=== PATIENT | female | born 1980 | race Caucasian/White ===

== ENCOUNTER → 2016-11-24 | Outpatient (CLI) | payer MEDICAID ==
[~2016-11-24] MED LIST: ALBU18HF INH; DIPH25CA61 PO; IBUP-1 PO; MULT-516 PO; dexamethasone LEFTEYE
== END ==
LOC: STAR 09:34
PROVIDERS: ATTEND Podiatrist
DX: Z02.9 Encounter for administrative examinations, unspecified (principal)

== ENCOUNTER 2018-09-29 20:26 | Emergency (ER) | payer MEDICAID ==
[~2018-09-29] VITALS: Ht 172.7 cm; Wt 75.9 kg
[~2018-09-29 20:26] MED LIST changes: -IBUP-1 PO; +IBUP-11 PO
[2018-09-29] MEDS ORDERED: MAALOX/HYOSCYAMINE/LIDOCAINE 45 ML BTL PO ONE (21:00)
[2018-09-29] MEDS ORDERED: FAMOTIDINE 20 MG/2 ML IVP ONE (21:00)
[2018-09-29] MEDS ORDERED: ONDANSETRON 2MG/ML, 2ML IVPush ONE (21:00)
[2018-09-29] MEDS ORDERED: SODIUM CHLORIDE 0.9% 1,000ML IVBOLUS ONE (21:00)
[2018-09-29] MEDS ORDERED: ACETAMINOPHEN 500 MG TABLET PO ONE (21:00)
--- NOTE | 2018-09-29 21:00 | NUR ---
assumed care of pt. pt here for N/V/D today. pt denies urinary c/o. denies any sick contacts. denies . urine sample collected and sent
[2018-09-29] MEDS ORDERED: ONDANSETRON 2MG/ML, 2ML ONE (21:11)
[2018-09-29] MEDS ORDERED: FAMOTIDINE 20 MG/2 ML ONE (21:11)
[2018-09-29 21:16] LABS: BASOPHILS # (AUTO) 0.02 x10^3/uL (0-0.1); BASOPHILS % (AUTO) 0 % (0-1); EOSINOPHILS # (AUTO) 0.04 x10^3/uL (0-0.4); EOSINOPHILS % (AUTO) 0 % (1-7); LYMPHOCYTES # (AUTO) 1.15 x10^3/uL (1-3.4); LYMPHOCYTES % (AUTO) 10 % (22-44); MD NO; MEAN CORPUSCULAR HEMOGLOBIN 29.8 pg (27.0-34.8); MEAN CORPUSCULAR HGB CONC 33.8 g/dL (32.4-35.8); MEAN CORPUSCULAR VOLUME 88.1 fL (80-100); MEAN PLATELET VOLUME 7.1 fL (7.4-10.4); MONOCYTES # (AUTO) 0.48 x10^3/uL (0.2-0.8); MONOCYTES % (AUTO) 4 % (2-9); NEUTROPHILS % (AUTO) 85 % (42-75); PLATELET COUNT 342 x10^3/uL (130-400); RED BLOOD COUNT 4.74 x10^6/uL (3.82-5.3); RED CELL DISTRIBUTION WIDTH 13.8 % (9.6-15.2)
[2018-09-29 21:19] LABS: ALANINE AMINOTRANSFERASE 143 U/L (12-78); ALBUMIN 4.1 g/dL (3.4-5.0); ANION GAP 8 mmol/L (5-15); CALCIUM 8.7 mg/dL (8.5-10.1); CHLORIDE 106 mmol/L (98-107)
[2018-09-29 21:21] LABS: HCG UR SG 1.037 (1.003-1.030)
[2018-09-29 21:22] VITALS: BP 113/69
[2018-09-29 21:22] LABS: ALKALINE PHOSPHATASE 90 U/L (45-117); BILIRUBIN,TOTAL 0.6 mg/dL (0.2-1.0); CREATININE 0.75 mg/dL (0.55-1.02); TOTAL PROTEIN 8.5 g/dL (6.4-8.2)
--- NOTE | 2018-09-29 21:30 | NUR ---
pt has been medicated per order. no vomiting noted. resting in position of comfort with lights dimmed
[2018-09-29 21:37] LABS: CULTURE INDICATED? YES; MICROSCOPIC INDICATED
--- NOTE | 2018-09-29 21:46 | NUR ---
REPORT FROM KAREN SANCHEZ
--- NOTE | 2018-09-29 21:47 | NUR ---
report to Lizabeth JONES
[2018-09-29] MEDS ORDERED: MAALOX/HYOSCYAMINE/LIDOCAINE 45 ML BTL ONE (21:48)
[2018-09-29] MEDS ORDERED: ACETAMINOPHEN 500 MG TABLET ONE (21:48)
--- NOTE | 2018-09-29 21:53 | NUR ---
PT SITTING UP IN GURNEY, SOME INCREASED WOB NOTED. PT REPORTS HX OF ASTHMA, "I NEED TO USE MY INHALER". SPO2 >90% ON RA, CALM, PWD. PT MEDICATED PER EMAR. FAMILY PRESENT. BP/SPO2 MONITOR IN PLACE.
[2018-09-29] MEDS ORDERED: CEFDINIR 300 MG CAPSULE ONE (22:18)
[2018-09-29] MEDS ORDERED: CEFDINIR 300 MG CAPSULE PO ONE (22:30)
--- NOTE | 2018-09-29 22:46 | NUR ---
NO S/S OF ABX RXN NOTED. PT OFF MONITORING. IV DC'D. PT UP TO DRESS SELF. AWAITING DC INSTRUCTIONS
== END 2018-09-29 22:59 | disposition home or self-care (01) ==
LOC: ED 21:31
DX: N30.01 Acute cystitis with hematuria (principal); N10 Acute pyelonephritis; R19.7 Diarrhea, unspecified; R11.2 Nausea with vomiting, unspecified; J45.909 Unspecified asthma, uncomplicated
CPT/HCPCS: 36415; 80053; 81001; 81025; 83690; 85025; 87086; 96374; 96375; 99283; J2405; J3490; J7030

== ENCOUNTER 2018-11-10 18:58 | Emergency (ER) | payer MEDICAID ==
[~2018-11-10] VITALS: Ht 152.4 cm; Wt 77.6 kg
[2018-11-10 19:03] VITALS: BP 152/85
[2018-11-10] MEDS ORDERED: ALBUTEROL/IPRATROPIUM 2.5MG/0.5MG, 3 ML NPPB ONE (19:30)
[2018-11-10 19:41] LABS: BASOPHILS # (AUTO) 0.03 x10^3/uL (0-0.1); BASOPHILS % (AUTO) 0 % (0-1); EOSINOPHILS # (AUTO) 0.24 x10^3/uL (0-0.4); EOSINOPHILS % (AUTO) 3 % (1-7); LYMPHOCYTES # (AUTO) 1.87 x10^3/uL (1-3.4); LYMPHOCYTES % (AUTO) 26 % (22-44); MD NO; MEAN CORPUSCULAR HEMOGLOBIN 29.6 pg (27.0-34.8); MEAN CORPUSCULAR HGB CONC 33.1 g/dL (32.4-35.8); MEAN CORPUSCULAR VOLUME 89.4 fL (80-100); MEAN PLATELET VOLUME 7.1 fL (7.4-10.4); MONOCYTES # (AUTO) 0.56 x10^3/uL (0.2-0.8); MONOCYTES % (AUTO) 8 % (2-9); NEUTROPHILS % (AUTO) 63 % (42-75); PLATELET COUNT 326 x10^3/uL (130-400); RED BLOOD COUNT 4.23 x10^6/uL (3.82-5.3); RED CELL DISTRIBUTION WIDTH 14.3 % (9.6-15.2)
[2018-11-10 19:43] LABS: ALBUMIN 3.8 g/dL (3.4-5.0); ANION GAP 6 mmol/L (5-15); CALCIUM 8.5 mg/dL (8.5-10.1); CHLORIDE 109 mmol/L (98-107)
[2018-11-10 19:44] LABS: CREATININE 0.65 mg/dL (0.55-1.02)
[2018-11-10] MEDS ORDERED: ALBUTEROL/IPRATROPIUM 2.5MG/0.5MG, 3 ML ONE (19:53)
[2018-11-10] MEDS ORDERED: PROMETHAZINE/COD. 10MG/6.25MG/5 ML ORAL SOL PO ONE (20:00)
--- NOTE | 2018-11-10 20:23 | NUR ---
PT FRANKLIN REFUSED AT THIS TIME, PT DRIVING.
--- NOTE | 2018-11-10 20:23 | NUR ---
SPO2 REMAINS LOW, WILL AMBULATE TO REASSESS. 91% ON ROOM AIR.
--- NOTE | 2018-11-10 20:37 | NUR ---
PT WITH CONTINUED LOW SPO2, 90-93% WHILE AMBULATING, PA MADE AWARE.
== END 2018-11-10 21:26 | disposition home or self-care (01) ==
LOC: ED 19:47
DX: J45.21 Mild intermittent asthma with (acute) exacerbation (principal); B34.9 Viral infection, unspecified
CPT/HCPCS: 36415; 71046; 80048; 82040; 85025; 94640; 99284; J7512; J7620

== ENCOUNTER 2019-08-01 17:01 | Inpatient (IN) | payer MEDICAID ==
[~2019-08-01] VITALS: Ht 152.4 cm; Wt 78.7 kg
--- NOTE | 2019-08-01 18:42 | NUR ---
INSTALLATION AND REPAIR TECHNICIAN: PT CALLED FOR ROOM, PT IN BR.
[2019-08-01] MEDS ORDERED: TIOT18CA INH (19:10)
[2019-08-01] MEDS ORDERED: DIPHENHYDRAMINE 25 MG CAPSULE ONE (19:26)
[2019-08-01] MEDS ORDERED: KETOROLAC 30 MG/1 ML ONE (19:26)
[2019-08-01] MEDS ORDERED: ACETAMINOPHEN 500 MG TABLET ONE (19:26)
[2019-08-01] MEDS ORDERED: PROCHLORPERAZINE 5 MG/ML, 2ML ONE (19:26)
[2019-08-01] MEDS ORDERED: KETOROLAC 30 MG/1 ML IV ONE (19:30)
[2019-08-01] MEDS ORDERED: SODIUM CHLORIDE 0.9% 1,000ML IVBOLUS ONE ×2 (19:30→22:00)
[2019-08-01] MEDS ORDERED: PROCHLORPERAZINE 5 MG/ML, 2ML IVPush ONE (19:30)
[2019-08-01] MEDS ORDERED: DIPHENHYDRAMINE 25 MG CAPSULE PO ONE (19:30)
[2019-08-01] MEDS ORDERED: ACETAMINOPHEN 325 MG TABLET PO ONE (19:30)
[2019-08-01 19:40] LABS: BASOPHILS # (AUTO) 0.05 x10^3/uL (0-0.1); BASOPHILS % (AUTO) 0 % (0-1); EOSINOPHILS % (AUTO) 2 % (1-7); LYMPHOCYTES # (AUTO) 2.41 x10^3/uL (1-3.4); LYMPHOCYTES % (AUTO) 20 % (22-44); MD NO; MEAN CORPUSCULAR HEMOGLOBIN 30.2 pg (27.0-34.8); MEAN CORPUSCULAR HGB CONC 32.5 g/dL (32.4-35.8); MEAN CORPUSCULAR VOLUME 92.9 fL (80-100); MEAN PLATELET VOLUME 6.6 fL (7.4-10.4); MONOCYTES # (AUTO) 0.73 x10^3/uL (0.2-0.8); MONOCYTES % (AUTO) 6 % (2-9); NEUTROPHILS # (AUTO) 8.81 x10^3/uL (1.8-6.8); NEUTROPHILS % (AUTO) 72 % (42-75); PLATELET COUNT 352 x10^3/uL (130-400); RED BLOOD COUNT 4.37 x10^6/uL (3.82-5.3); RED CELL DISTRIBUTION WIDTH 14.2 % (9.6-15.2)
[2019-08-01] MEDS ORDERED: ALBUTEROL/IPRATROPIUM 2.5MG/0.5MG, 3 ML ONE ×2 (19:50→20:30)
[2019-08-01 19:52] LABS: ALBUMIN 3.9 g/dL (3.4-5.0); ANION GAP 8 mmol/L (5-15); CALCIUM 8.8 mg/dL (8.5-10.1); CHLORIDE 108 mmol/L (98-107); CREATININE 0.75 mg/dL (0.55-1.02)
[2019-08-01] MEDS: ALBUTEROL/IPRATROPIUM 2.5MG/0.5MG, 3 ML NPPB SCH ×2 (19:56→20:33)
--- NOTE | 2019-08-01 21:09 | NUR ---
PT REPORTED FEELING "WHEEZY AND HAVING TIGHT CHEST". EKG DONE. BREATHING TREATMENTS ORDERED. PT PUT ON 2.5 LITERS OXYGEN AND O2 IS AT 95%. MOTHER IS BEDSIDE. WARM BLANKET PROVIDED. NO REQUEST AT THIS TIME
[2019-08-01] MEDS ORDERED: AZITHROMYCIN 500 MG TABLET PO ONE (22:00)
[2019-08-01] MEDS ORDERED: MAGNESIUM SULFATE PMX 2GM/50ML 50 ML IVPB ONE (22:00)
--- NOTE | 2019-08-01 22:10 | NUR ---
REPORT GIVEN TO URBANO JONES
--- NOTE | 2019-08-01 22:17 | NUR ---
RECEIVED REPORT FROM AMANDA RN AT 2205 TO ASSUME CARE OF PT.
[2019-08-01] MEDS ORDERED: AZITHROMYCIN 250 MG TABLET ONE (22:30)
[2019-08-01] MEDS ORDERED: MAGNESIUM SULFATE PMX 2GM/50ML 50 ML ONE (22:30)
--- NOTE | 2019-08-01 22:51 | NUR ---
REPORT TO KAREN ALBERTS. FLOOR READY FOR PT. TRANSPORT.
[2019-08-01] MEDS ORDERED: ONDANSETRON 2MG/ML, 2ML IVPush PRN (23:00)
[2019-08-01] MEDS ORDERED: POLYETHYLENE GLYCOL 17 GM PACKET PO PRN (23:00)
[2019-08-01] MEDS ORDERED: hydrALAzine 20 MG/ML, 1ML IVPush PRN (23:00)
[2019-08-01] MEDS ORDERED: BISACODYL 10 MG SUPP PR PRN (23:00)
[2019-08-01] MEDS ORDERED: PROMETHAZINE 25 MG/ML, 1ML IM PRN (23:00)
[2019-08-01] MEDS ORDERED: DOCUSATE 100 MG CAPSULE PO PRN (23:00)
[2019-08-01] MEDS ORDERED: ONDANSETRON ODT 4 MG PO PRN (23:00)
[2019-08-01 23:21] VITALS: BP 132/78
[2019-08-01] MEDS: ENOXAPARIN 40 MG/0.4 ML SQ SCH (23:32)
[2019-08-01] MEDS: DOXYCYCLINE 100MG TABLET PO SCH (23:32)
[2019-08-01] MEDS: SODIUM CHLORIDE 0.9% 1,000 ML IV SCH (23:32)
[2019-08-01] MEDS: GUAIFENESIN ER 600 MG TABLET PO SCH (23:32)
[2019-08-01] MEDS: methylPREDNISolone SOD SUCC 125 MG/2 ML IVPush SCH (23:32)
[2019-08-01 23:46] LABS: FREE T4 (FREE THYROXINE) 0.94 ng/dL (0.76-1.46)
[2019-08-01 23:51] LABS: HEMOGLOBIN A1C 6.1 % (4.2-6.3)
[2019-08-02 00:18] VITALS: BP 128/77
[2019-08-02] MEDS ORDERED: ALBUTEROL/IPRATROPIUM 2.5MG/0.5MG, 3 ML NPPB PRN (00:30)
[2019-08-02 03:38] LABS: RAPID INFLUENZA A Negative (Negative); RAPID INFLUENZA B Negative (Negative)
[2019-08-02] MEDS: methylPREDNISolone SOD SUCC 125 MG/2 ML IVPush SCH ×5 (05:37→22:38)
[2019-08-02 06:49] LABS: MEAN CORPUSCULAR HEMOGLOBIN 29.8 pg (27.0-34.8); MEAN CORPUSCULAR HGB CONC 32.7 g/dL (32.4-35.8); MEAN CORPUSCULAR VOLUME 91.2 fL (80-100); MEAN PLATELET VOLUME 6.4 fL (7.4-10.4); PLATELET COUNT 318 x10^3/uL (130-400); RED BLOOD COUNT 4.15 x10^6/uL (3.82-5.3); RED CELL DISTRIBUTION WIDTH 14.3 % (9.6-15.2)
[2019-08-02 06:55] LABS: CHLORIDE 110 mmol/L (98-107)
[2019-08-02 06:56] VITALS: BP 128/85
[2019-08-02 07:01] LABS: ALANINE AMINOTRANSFERASE 58 U/L (12-78); ALBUMIN 3.6 g/dL (3.4-5.0); ALKALINE PHOSPHATASE 71 U/L (45-117); ANION GAP 9 mmol/L (5-15); BILIRUBIN,TOTAL 0.5 mg/dL (0.2-1.0); CALCIUM 8.2 mg/dL (8.5-10.1); CHOL/HDL RATIO 2.4; CHOLESTEROL, TOTAL 138 mg/dL (140-239); CREATININE 0.45 mg/dL (0.55-1.02); HDL CHOL % 42 % (28-40); HDL CHOLESTEROL (DIRECT) 58 mg/dL (40-60); LDL CHOLESTEROL,CALCULATED 63 mg/dL (54-169); LDL/HDL RATIO 1.1 (0.5-3.0); TOTAL PROTEIN 7.5 g/dL (6.4-8.2); TRIGLYCERIDES 84 mg/dL (50-200); VLDL CHOLESTEROL 17 mg/dL (0-25)
[2019-08-02 07:46] LABS: BASOPHILS # (AUTO) 0.04 x10^3/uL (0-0.1); BASOPHILS % (AUTO) 0 % (0-1); EOSINOPHILS % (AUTO) 0 % (1-7); LYMPHOCYTES # (AUTO) 0.82 x10^3/uL (1-3.4); LYMPHOCYTES % (AUTO) 5 % (22-44); MD SCAN; MONOCYTES # (AUTO) 0.31 x10^3/uL (0.2-0.8); MONOCYTES % (AUTO) 2 % (2-9); NEUTROPHILS # (AUTO) 15.88 x10^3/uL (1.8-6.8); NEUTROPHILS % (AUTO) 93 % (42-75)
[2019-08-02] MEDS: DOXYCYCLINE 100MG TABLET PO SCH ×2 (08:49→19:55)
[2019-08-02] MEDS: MULTIVITAMIN 1 TABLET PO SCH (08:49)
[2019-08-02] MEDS: GUAIFENESIN ER 600 MG TABLET PO SCH ×2 (08:49→19:55)
[2019-08-02] MEDS: ACETAMINOPHEN 325 MG TABLET PO PRN (08:54)
[2019-08-02] MEDS: SODIUM CHLORIDE 0.9% 1,000 ML IV SCH (09:00)
[2019-08-02] MEDS: CEFTRIAXONE PMX 2GM/50ML 50 ML IV SCH (09:08)
[2019-08-02] MEDS: BUDESONIDE 0.5 MG/2 ML INHA NPPB SCH ×2 (09:45→19:07)
[2019-08-02] MEDS: ALBUTEROL/IPRATROPIUM 2.5MG/0.5MG, 3 ML NPPB SCH ×3 (09:45→21:00)
[2019-08-02 12:17] VITALS: BP 107/62
[2019-08-02] MEDS ORDERED: GUAIFENESIN/DM 200-20MG, 10ML UDC ONE (19:50)
[2019-08-02] MEDS: HYDROcodone/APAP 5/325 TABLET PO PRN (19:55)
[2019-08-02] MEDS: GUAIFENESIN/DM 100-10MG, 5ML UDC PO PRN (19:55)
[2019-08-02 20:18] VITALS: BP 117/68
[2019-08-02] MEDS: ENOXAPARIN 40 MG/0.4 ML SQ SCH (22:03)
[2019-08-03] MEDS: HYDROcodone/APAP 5/325 TABLET PO PRN ×3 (00:33→18:07)
[2019-08-03 01:58] VITALS: BP 131/72
[2019-08-03] MEDS: ALBUTEROL/IPRATROPIUM 2.5MG/0.5MG, 3 ML NPPB SCH ×4 (02:46→20:27)
[2019-08-03] MEDS: methylPREDNISolone SOD SUCC 125 MG/2 ML IVPush SCH ×4 (05:16→22:27)
[2019-08-03 07:24] VITALS: BP 104/61
[2019-08-03] MEDS: DOXYCYCLINE 100MG TABLET PO SCH ×2 (08:09→20:45)
[2019-08-03] MEDS: MULTIVITAMIN 1 TABLET PO SCH (08:09)
[2019-08-03] MEDS: GUAIFENESIN ER 600 MG TABLET PO SCH ×2 (08:09→20:44)
[2019-08-03] MEDS: CEFTRIAXONE PMX 2GM/50ML 50 ML IV SCH (09:28)
[2019-08-03] MEDS: ACETAMINOPHEN 325 MG TABLET PO PRN (09:36)
[2019-08-03] MEDS: BUDESONIDE 0.5 MG/2 ML INHA NPPB SCH ×2 (10:13→20:27)
[2019-08-03 13:23] VITALS: BP 122/74
[2019-08-03] MEDS: GUAIFENESIN/DM 100-10MG, 5ML UDC PO PRN (13:50)
[2019-08-03] MEDS ORDERED: SUMATRIPTAN 25 MG TABLET PO ONE (21:30)
[2019-08-03 22:22] VITALS: BP 131/82
[2019-08-03] MEDS: ENOXAPARIN 40 MG/0.4 ML SQ SCH (22:29)
[2019-08-04 01:55] VITALS: BP 115/64
[2019-08-04] MEDS: ALBUTEROL/IPRATROPIUM 2.5MG/0.5MG, 3 ML NPPB SCH ×3 (02:45→15:55)
[2019-08-04] MEDS: methylPREDNISolone SOD SUCC 125 MG/2 ML IVPush SCH ×2 (05:35→12:02)
[2019-08-04] MEDS: ACETAMINOPHEN 325 MG TABLET PO PRN ×2 (05:36→12:15)
[2019-08-04] MEDS: DOXYCYCLINE 100MG TABLET PO SCH (09:01)
[2019-08-04] MEDS: MULTIVITAMIN 1 TABLET PO SCH (09:01)
[2019-08-04] MEDS: GUAIFENESIN ER 600 MG TABLET PO SCH (09:01)
[2019-08-04] MEDS: CEFTRIAXONE PMX 2GM/50ML 50 ML IV SCH (09:01)
[2019-08-04 09:09] VITALS: BP 135/83
[2019-08-04] MEDS: BUDESONIDE 0.5 MG/2 ML INHA NPPB SCH (09:50)
[2019-08-04] MEDS ORDERED: CEFD300C37 PO (13:27)
[2019-08-04] MEDS ORDERED: IPRA3AMP30 NPPB (13:27)
[2019-08-04] MEDS ORDERED: PRED10TA PO (13:27)
[2019-08-04] MEDS ORDERED: DOXY100T PO (13:27)
[2019-08-04] MEDS ORDERED: GUAI1TBM11 PO (13:27)
[2019-08-04] MEDS ORDERED: MOME13HF2 INH (13:28)
[2019-08-04 13:40] VITALS: BP 131/81
[2019-08-04] MEDS ORDERED: FLU VACC QS2019-20 36MOS UP/PF 0.5 ML IM ONE (15:30)
== END 2019-08-04 18:13 | disposition home or self-care (01) | DRG 189 ==
LOC: ED 19:10 → EDIP 22:20 → 4WST 23:11
PROVIDERS: ADMIT Internal Medicine; ATTEND Internal Medicine
DX: J96.01 Acute respiratory failure with hypoxia (principal); J45.21 Mild intermittent asthma with (acute) exacerbation; R65.10 Systemic inflammatory response syndrome (SIRS) of non-infectious origin without acute organ dysfunction; E66.9 Obesity, unspecified; R00.0 Tachycardia, unspecified; R19.7 Diarrhea, unspecified; R11.2 Nausea with vomiting, unspecified; Z68.33 Body mass index [BMI] 33.0-33.9, adult; Z83.3 Family history of diabetes mellitus
CPT/HCPCS: 36415; 87400; J7620; J7626; 71045; 80048; 80053; 80061; 82040; 83036; 83735; 84439; 84443; 85025; 87040; 90686; 93005; 94640; 96374; G0378; J0696; J1650; J1885; J0780; J2930; J3475; J7030; J7512; Q0163

== ENCOUNTER 2019-12-13 18:59 | Observation (INO) | payer MEDICAID ==
[~2019-12-13] VITALS: Ht 152.4 cm; Wt 74.0 kg
[~2019-12-13 18:59] MED LIST changes: +CEFD300C37 PO; +DOXY100T PO; +GUAI1TBM11 PO; +IPRA3AMP30 NPPB; +MOME13HF2 INH; +PRED10TA PO; +TIOT18CA INH
--- NOTE | 2019-12-13 19:49 | NUR ---
Care assumed of pt. Pt bib sister with c/o ALOC. Sister states for the last week, pt has not been sleeping and has been increasingly confused and agitated. Sister states pt had similar episode 2 years ago. Pt sinus tachy on monitor. Pulse ox and BP monitoring in place. Sister states pt has had increased stress s/t delay in surgery. Pt does follow commands and attempts to answer questions but does not answer appropriately. Pt mumbling. Moving all extremities. Pt does become increasingly agitated during exam. Unable to complete full neuro. FSBS 153. Sister remains at bedside. Awaiting ERP eval.
[2019-12-13] MEDS ORDERED: ZIPRASIDONE 20 MG INJ IM ONE ×2 (19:58→20:30)
--- NOTE | 2019-12-13 20:07 | NUR ---
PT BECOMING MORE AGITATED. PT GRABBED LAB TECHS HAND. UNABLE TO DRAW LABS. GRABBING AT STAFF. PULLING AT CORDS. AWAITNG ERP EVAL. DISCUSSED WITH ERP PT GETTING MORE AGITATED AND COMBATIVE. ORDER FOR 20 MG GEODON IM RECEIVED. PT MEDICATED WITH OMAYRA JONES. PT GRABBED AT OMAYRA WELL WOULD NOT LET GO OF HAND. PT INTERMITTENTLY SPEAKING ICELANDIC AND TRISTANIAN. PT SPELLING WORDS.
--- NOTE | 2019-12-13 20:17 | NUR ---
ERP in to eval.
--- NOTE | 2019-12-13 20:25 | NUR ---
Pt more calm at this time. Requesting a pillow and blanket. Both provided. Pt placed on 2L O2 NC. Resting with resp even and unlabored. Sister remains at bedside. Call light in reach. Lab called to draw.
[2019-12-13 20:59] LABS: BASOPHILS # (AUTO) 0.02 x10^3/uL (0-0.1); BASOPHILS % (AUTO) 0 % (0-1); EOSINOPHILS % (AUTO) 0 % (1-7); LYMPHOCYTES # (AUTO) 1.84 x10^3/uL (1-3.4); LYMPHOCYTES % (AUTO) 34 % (22-44); MD NO; MEAN CORPUSCULAR HEMOGLOBIN 28.5 pg (27.0-34.8); MEAN CORPUSCULAR VOLUME 89.2 fL (80-100); MEAN PLATELET VOLUME 6.7 fL (7.4-10.4); MONOCYTES # (AUTO) 0.48 x10^3/uL (0.2-0.8); MONOCYTES % (AUTO) 9 % (2-9); NEUTROPHILS # (AUTO) 3.14 x10^3/uL (1.8-6.8); NEUTROPHILS % (AUTO) 57 % (42-75); PLATELET COUNT 376 x10^3/uL (130-400); RED BLOOD COUNT 4.18 x10^6/uL (3.82-5.3); RED CELL DISTRIBUTION WIDTH 14.3 % (9.6-15.2)
[2019-12-13 21:08] LABS: ALBUMIN 4.1 g/dL (3.4-5.0); ANION GAP 8 mmol/L (5-15); CALCIUM 9.2 mg/dL (8.5-10.1); CHLORIDE 107 mmol/L (98-107)
[2019-12-13 21:09] LABS: CREATININE 0.61 mg/dL (0.55-1.02)
[2019-12-13 21:10] LABS: SALICYLATE LEVEL < 1.7 mg/dL (2.8-20.0)
[2019-12-13] MEDS ORDERED: POTASSIUM CHLORIDE 20 MEQ TAB.ER.PRT PO ONE (21:30)
[2019-12-13] MEDS ORDERED: POTASSIUM CHLORIDE 40 MEQ in SODIUM CHLORIDE 0.9% 500 ML IV ONE (21:30)
--- NOTE | 2019-12-13 21:42 | NUR ---
IV ACCESS OBTAINED. PT SLEEPING BUT AROUSES EASILY. PT NOW ANSWERING QUESTIONS MORE APPROPRIATELY. DISCUSSED CT WITH ERP--NONE TO BE ORDERED AT THIS TIME. NSR ON [facility]. HOSPITALIST AT BEDSIDE FOR ADMISSION. CALL LIGHT IN REACH.
[2019-12-13] MEDS ORDERED: POTASSIUM CHLORIDE 20 MEQ in LACTATED RINGERS 1,000 ML IV SCH (21:57)
[2019-12-13] MEDS ORDERED: ONDANSETRON 2MG/ML, 2ML IVPush PRN (22:00)
[2019-12-13] MEDS ORDERED: ACETAMINOPHEN 325 MG TABLET PO PRN (22:00)
[2019-12-13] MEDS ORDERED: LORazepam 2 MG/ML, 1ML IVPush PRN (22:00)
[2019-12-13] MEDS ORDERED: ALBUTEROL/IPRATROPIUM 2.5MG/0.5MG, 3 ML NPPB PRN (22:00)
[2019-12-13] MEDS ORDERED: POTASSIUM CHLORIDE 20 MEQ TAB.ER.PRT ONE (22:21)
--- NOTE | 2019-12-13 22:26 | NUR ---
PT MEDICATED PER MAR WITH PO K+. PT SWALLOWING WITH NO DIFFICULTY.
[2019-12-13 22:44] VITALS: BP 119/76
[2019-12-13 22:53] VITALS: BP 119/76
[2019-12-13] MEDS: ALBUTEROL SULFATE 2.5 MG/3 ML NPPB SCH (23:00)
[2019-12-13] MEDS: BUDESONIDE 0.5 MG/2 ML INHA NPPB SCH (23:00)
[2019-12-14 00:48] VITALS: BP 115/73
[2019-12-14 04:05] LABS: MICROSCOPIC AUTO
[2019-12-14 04:06] LABS: CULTURE INDICATED? YES
[2019-12-14 04:12] LABS: AMPHETAMINE SCREEN, URINE Negative (Negative); BARBITURATE SCREEN, URINE Negative (Negative); BENZODIAZEPINE SCREEN, URINE Positive (Negative); CANNABINOID SCREEN, URINE Negative (Negative); COCAINE SCREEN, URINE Negative (Negative); METHADONE SCREEN, URINE Negative (Negative); OPIATE SCREEN, URINE Negative (Negative)
[2019-12-14 04:54] LABS: BASOPHILS # (AUTO) 0.03 x10^3/uL (0-0.1); BASOPHILS % (AUTO) 1 % (0-1); EOSINOPHILS # (AUTO) 0.05 x10^3/uL (0-0.4); EOSINOPHILS % (AUTO) 1 % (1-7); LYMPHOCYTES # (AUTO) 3.46 x10^3/uL (1-3.4); LYMPHOCYTES % (AUTO) 53 % (22-44); MD NO; MEAN CORPUSCULAR HEMOGLOBIN 29.5 pg (27.0-34.8); MEAN CORPUSCULAR HGB CONC 32.5 g/dL (32.4-35.8); MEAN CORPUSCULAR VOLUME 90.9 fL (80-100); MEAN PLATELET VOLUME 6.9 fL (7.4-10.4); MONOCYTES % (AUTO) 9 % (2-9); NEUTROPHILS # (AUTO) 2.44 x10^3/uL (1.8-6.8); NEUTROPHILS % (AUTO) 37 % (42-75); PLATELET COUNT 349 x10^3/uL (130-400); RED BLOOD COUNT 3.88 x10^6/uL (3.82-5.3); RED CELL DISTRIBUTION WIDTH 14.2 % (9.6-15.2)
[2019-12-14 05:00] LABS: CHLORIDE 111 mmol/L (98-107)
[2019-12-14 05:08] LABS: ANION GAP 7 mmol/L (5-15); CALCIUM 9.1 mg/dL (8.5-10.1); CREATININE 0.53 mg/dL (0.55-1.02)
[2019-12-14] MEDS: ALBUTEROL SULFATE 2.5 MG/3 ML NPPB SCH ×2 (06:00→10:00)
[2019-12-14] MEDS: BUDESONIDE 0.5 MG/2 ML INHA NPPB SCH (07:07)
[2019-12-14 07:34] VITALS: BP 128/76
[2019-12-14] MEDS ORDERED: SERT50TA PO (08:40)
[2019-12-14] MEDS ORDERED: MULTIVITAMIN 1 TABLET PO SCH (09:00)
== END 2019-12-14 10:49 | disposition home or self-care (01) ==
LOC: ED 20:04 → EDIP 21:35 → INTOOBSV 21:35 → 4EST 22:41
PROVIDERS: ATTEND Internal Medicine Infectious Disease
DX: E87.6 Hypokalemia (principal); F41.1 Generalized anxiety disorder; D64.9 Anemia, unspecified; D25.9 Leiomyoma of uterus, unspecified; J45.20 Mild intermittent asthma, uncomplicated; Z90.710 Acquired absence of both cervix and uterus; Z79.899 Other long term (current) drug therapy
CPT/HCPCS: 36415; 71045; 80048; 80307; 81001; 82040; 82962; 83735; 84100; 85025; 87086; 93005; 94640; 96365; 96366; 96372; G0378; J3480; J3486; J7040; J7120; J7613; J7626

== ENCOUNTER 2019-12-14 20:32 | Emergency (ER) | payer MEDICAID ==
[~2019-12-14 20:32] MED LIST changes: +SERT50TA PO
--- NOTE | 2019-12-14 21:05 | NUR ---
Right wirst and left leg restraints removed by security.
[2019-12-14 21:12] LABS: BASOPHILS # (AUTO) 0.01 x10^3/uL (0-0.1); BASOPHILS % (AUTO) 0 % (0-1); EOSINOPHILS # (AUTO) 0.01 x10^3/uL (0-0.4); EOSINOPHILS % (AUTO) 0 % (1-7); LYMPHOCYTES # (AUTO) 1.03 x10^3/uL (1-3.4); LYMPHOCYTES % (AUTO) 16 % (22-44); MD NO; MEAN CORPUSCULAR HEMOGLOBIN 29.1 pg (27.0-34.8); MEAN CORPUSCULAR HGB CONC 32.7 g/dL (32.4-35.8); MONOCYTES # (AUTO) 0.47 x10^3/uL (0.2-0.8); MONOCYTES % (AUTO) 7 % (2-9); NEUTROPHILS # (AUTO) 4.98 x10^3/uL (1.8-6.8); NEUTROPHILS % (AUTO) 77 % (42-75); PLATELET COUNT 376 x10^3/uL (130-400); RED BLOOD COUNT 3.91 x10^6/uL (3.82-5.3); RED CELL DISTRIBUTION WIDTH 14.1 % (9.6-15.2)
[2019-12-14 21:18] LABS: ALBUMIN 3.8 g/dL (3.4-5.0); ANION GAP 12 mmol/L (5-15); CALCIUM 9.2 mg/dL (8.5-10.1); CHLORIDE 107 mmol/L (98-107)
[2019-12-14 21:21] LABS: ALANINE AMINOTRANSFERASE 121 U/L (12-78); CREATININE 0.78 mg/dL (0.55-1.02); SALICYLATE LEVEL < 1.7 mg/dL (2.8-20.0)
[2019-12-14 21:23] LABS: ALKALINE PHOSPHATASE 71 U/L (45-117); BILIRUBIN,TOTAL 0.2 mg/dL (0.2-1.0); TOTAL PROTEIN 7.3 g/dL (6.4-8.2)
--- NOTE | 2019-12-14 21:26 | NUR ---
All restraints now removed from pt. Pt continues to sleep and is difficult to arouse.
[2019-12-14] MEDS ORDERED: SODIUM CHLORIDE FLUSH 10ML SYR IVF ONE (22:30)
[2019-12-14] MEDS ORDERED: SODIUM CHLORIDE 0.9% 1,000ML IVBOLUS ONE (22:30)
--- NOTE | 2019-12-14 23:58 | NUR ---
Pt awake, alert, and able to ambulate in the room without assistance. Pt states she is comfortable being discharged at this time.
[2019-12-15 00:04] VITALS: BP 123/83
== END 2019-12-15 00:10 | disposition home or self-care (01) ==
LOC: ED 21:10
DX: F41.1 Generalized anxiety disorder (principal); R00.0 Tachycardia, unspecified; R41.0 Disorientation, unspecified; R94.31 Abnormal electrocardiogram [ECG] [EKG]
CPT/HCPCS: 36415; 80053; 80307; 85025; 93005; 96360; 99285; J7030